=== PATIENT | female | born 1995 | race Caucasian/White ===

== ENCOUNTER → 2019-12-08 13:36 | Outpatient (CLI) | payer OTHER, SELFPAY ==
[2019-12-09 08:03] LABS: Strep Grp B PCR NEG for Grp B Strep
== END ==
PROVIDERS: Visit Provider Obstetrics & Gynecology
DX: Z34.03 Encounter for supervision of normal first pregnancy, third trimester (principal); Z3A.35 35 weeks gestation of pregnancy
CPT/HCPCS: 87653

== ENCOUNTER 2019-12-08 15:34 | Outpatient (CLI) | payer OTHER, SELFPAY | END 2019-12-08 16:07 | disposition home or self-care (01) | LOC: LABOR 15:38 → OB 12-09 12:40 | PROVIDERS: Referring Provider Obstetrics & Gynecology; Visit Provider Obstetrics & Gynecology | DX: O36.5930 Maternal care for other known or suspected poor fetal growth, third trimester, not applicable or unspecified (principal); O41.03X0 Oligohydramnios, third trimester, not applicable or unspecified; Z3A.35 35 weeks gestation of pregnancy | CPT/HCPCS: 59025; 87653; G0378; G0379 ==

== ENCOUNTER → 2019-12-12 09:09 | Outpatient (CLI) | payer OTHER, SELFPAY ==
--- NOTE | 2019-12-12 09:11 | DI.US.S_ITS ---
PROCEDURE: US OB LIMITED INDICATIONS: EFW; BPP OUTSIDE/PRIOR DATING DATA: Last menstrual period (LMP): Unknown. LMP-based estimated date of delivery (DIANA): Unknown. First dating scan (date and location): 12/12/2019. Estimated date of delivery (DIANA) from first dating scan: 01/14/2020. TECHNIQUE: Real-time scanning was performed of the fetus, with image documentation and biometric measurements. Biophysical profile was also obtained. COMPARISON: [facility], , OB <= 14 WEEKS FETUS, 12/08/2019, 13:51. FINDINGS: General: A single living intrauterine gestation is present. Presentation: Vertex. Placenta: Placental position is anterior, without previa. Amniotic fluid index: 6.9 cm, normal range is 5-24 cm. heart rate: 133 beats per minute. Maternal cervical canal: Not well-seen. biometrics: Biparietal diameter: 8.8 cm. 35 weeks 4 days. Head circumference: 32.0 cm. 36 weeks 0 days. Abdominal circumference: 30.7 cm. 34 weeks 4 days. Femur length: 6.8 cm. 35 weeks 1 day. Estimated gestational age from initial scan: not applicable. Composite gestational age from present scan: 35 weeks 2 days. Estimated weight: 2563 g. Measurement variability for biometric dating: +/- 7 days from 14 weeks to 15 weeks 6 days gestation, +/- 10 days from 16 weeks to 21 weeks 6 days gestation, +/- 2 weeks from 22 weeks to 27 weeks 6 days gestation, +/- 3 weeks for 28 weeks gestation or later. weight reference: 4500 g or EFW >90/95% is considered macrosomia or large for gestational age. EFW <10% is small for gestational age. EFW 5% or less is considered intra-uterine growth restriction. Biophysical profile: 03/27. Tone: 2 points. Movement: 2 points. Respiration: 2 points. Largest pocket of fluid: 2 points. IMPRESSION: 1. [place] living intrauterine at 35 weeks 2/7 days based on prior ultrasound. Estimated weight 2563 grams. Vertex position. 2. Normal placenta and amniotic fluid. 3. Normal biophysical profile. Score 8 out of 8. Dictated by: Humberto Clinton M.D. on 12/12/2019 at 9:49 Approved by: Humberto Clinton M.D. on 12/12/2019 at 9:54
== END ==
PROVIDERS: Referring Provider Obstetrics & Gynecology; Visit Provider Obstetrics & Gynecology
DX: O28.8 Other abnormal findings on antenatal screening of mother (principal); O36.5930 Maternal care for other known or suspected poor fetal growth, third trimester, not applicable or unspecified; Z3A.35 35 weeks gestation of pregnancy
CPT/HCPCS: 76815; 76819

== ENCOUNTER 2019-12-19 10:51 | Inpatient (IN) | payer OTHER, SELFPAY ==
[2019-12-19 13:44] LABS: Add Manual Diff / Slide Review NO; Basophils Absolute Auto 0 /uL (0-100); Basophils Percent Auto 0.2 % (0-2); Eosinophils Absolute Auto 0 /uL (0-450); Hematocrit 34.5 % (36-46); Hemoglobin 11.8 g/dL (12.0-16.0); Lymphocytes Absolute Auto 2100 /uL (1100-4500); Lymphocytes Percent Auto 13.9 % (25-40); Mean Corpuscular HGB Conc 34.1 % (30-36); Mean Corpuscular Hemoglobin 32.1 PG (26-34); Mean Corpuscular Volume 94.1 fL (80-100); Monocytes Absolute Auto 800 /uL (0-900); Monocytes Percent Auto 5.4 % (3-14); Neutrophils Absolute Auto 12200 /uL (1500-7000); Neutrophils Percent Auto 80.5 % (50-75); Platelet Count 270 X10^3/uL (150-400); Red Blood Cell Count 3.67 X10^6/uL (4.0-5.2); Red Cell Distribution Width 13.1 % (11.6-14.8); White Blood Cell Count 15.2 X10^3/uL (4.5-11.0)
[2019-12-19] MEDS: miSOPROStoL 25 MCG TABLET 50 MCG PO ×2 (16:04→21:23)
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
--- NOTE | 2019-12-19 20:09 | PM.OBPNLAB ---
Date/Time Date Patient Seen: 12/19/19 Time Patient Seen: 20:10 Pain Control Pain control: tolerating well Comments: not feeling any contractions Pelvic Exam Comments: exam not repeated Contractions Date/Time contractions began: q 2-5, mostly q 5 minutes. pt not feeling contractions Contractions on admission: irregular Monitor mode: External Contraction frequency (min): 5 Status status: Category l Heart Rate Baseline: 135 Monitor Accelerations: Present Monitor Decelerations: Absent Monitor Variability: Moderate Assessment and Plan Assessment: induction ongoing Comments: will check in 1 hour and see if contractions remain spaced enough for repeat Cytotec at that time. Currently 4 hours from her first dose.
[2019-12-19] MEDS: diphenhydrAMINE 25 MG TABLET PO (21:23)
[2019-12-20] MEDS: OXYTOCIN PREMIX 30 UNIT/500 ML PLAST..BAG IV (05:07)
[2019-12-20] MEDS: LACTATED RINGERS 1,000 ML 100 ML IV (08:28)
[2019-12-20] MEDS: ONDANSETRON 4 MG/2 ML INJ IV ×2 (08:59→17:44)
[2019-12-20] MEDS: fentaNYL 100 MCG/2 ML INJ 50 MCG IV (09:43)
--- NOTE | 2019-12-20 10:02 | PM.OBPNLAB ---
Date/Time Date Patient Seen: 12/20/19 Time Patient Seen: 10:05 Pain Control Pain control: tolerating well Comments: Patient had spontaneous rupture membranes at 10:30 p.m. last p.m., about 1 hour after her 2nd dose of Cytotec. Her contractions were every 4-5 minutes. At 3:00 a.m. had her cervix re-checked and there was only some mild effacement, cervix fingertip/50%. Patient was not feeling the contractions. Instructions given to start Pitocin induction of labor at 5:00 a.m. if no labor. Pitocin started. At 7:30 a.m. Pitocin at 3 milliunits, patient only feeling some cramping. Pitocin further increased at that time and she has now become more uncomfortable. Desire something for pain relief, desires IV versus epidural depending on her exam. Pelvic Exam Dilation (cm): 1 Effacement (%): 75 station: -2 Contractions Monitor mode: External Pitocin rate (mU/min): 7 Contraction frequency (min): 4 Contraction pattern: Irregular (2-4 minutes) Status status: Category l Monitor Accelerations: Present Monitor Decelerations: Absent Monitor Variability: Moderate Assessment and Plan Assessment: induction ongoing Plan: continuous present management Comments: Thirty-seven weeks, induction for oligohydramnios, SROM, early labor. Category 1 EFM Continue Pitocin. Patient desires try IV fentanyl for discomfort, will desire an epidural when she becomes more uncomfortable.
--- NOTE | 2019-12-20 14:39 | PM.OBPNLAB ---
Date/Time Date Patient Seen: 12/20/19 Time Patient Seen: 14:20 Pain Control Pain control: tolerating well and narcotic analgesia (Received relief with fentanyl several hours ago. Contractions still now tolerable, does not desire any thing else for discomfort) Pelvic Exam Dilation (cm): 0 Effacement (%): 70 station: -2 Contractions Monitor mode: External Contraction frequency (min): 4 Contraction pattern: Irregular (2-4 minutes) Contraction intensity: Mild Status status: Category l Heart Rate Baseline: 130 Monitor Accelerations: Present Monitor Decelerations: Absent Monitor Variability: Moderate Assessment and Plan Assessment: induction ongoing Plan: continuous present management (Continue Pitocin. Increase from 12 to14 milliunits/minute)
--- NOTE | 2019-12-20 19:23 | PM.OBPNLAB ---
Date/Time Date Patient Seen: 12/20/19 Time Patient Seen: 19:00 Pain Control Pain control: tolerating well Comments: She became more uncomfortable with only some contractions about an hour ago with some nausea. Nausea relief with Zofran. Contraction is now more mild again inpatient sleeping intermittently. Pelvic Exam Dilation (cm): 0 Effacement (%): 75 station: -2 Comments: Cervix somewhat softer, but no significant change Contractions Monitor mode: External Pitocin rate (mU/min): 18 Contraction frequency (min): 4 Contraction duration (min): 1 Contraction pattern: Irregular (2-4 minutes) Contraction intensity: Mild Status status: Category l Heart Rate Baseline: 130 Monitor Accelerations: Present Monitor Decelerations: Absent Monitor Variability: Moderate Assessment and Plan Assessment: induction ongoing Plan: other (Pitocin turned off. Will let her eat after the contractions space some. Will have Cervidil placed for overnight after contractions space and after a break.)
[2019-12-20] MEDS: ACETAMINOPHEN 325 MG TABLET 650 MG PO (21:20)
[2019-12-20] MEDS: ZOLPIDEM 5 MG TABLET PO (21:41)
[2019-12-20] MEDS: DINOPROSTONE VAG (CERVIDIL) 10 MG VAG (21:42)
[2019-12-21] MEDS: ONDANSETRON 4 MG/2 ML INJ IV (06:48)
[2019-12-21] MEDS: LACTATED RINGERS 1,000 ML 100 ML IV ×2 (08:03→23:16)
[2019-12-21] MEDS: OXYTOCIN PREMIX 30 UNIT/500 ML PLAST..BAG IV (08:17)
--- NOTE | 2019-12-21 11:07 | PM.OBPNLAB ---
Date/Time Date Patient Seen: 12/21/19 Time Patient Seen: 11:00 Pain Control Pain control: epidural Comments: Pt started to become more uncomfortable around 630 around time of Cervidil being pulled. Desired epidural for anesthesia prior to any additional vaginal exams. Declined fentanyl. Anesthesia called for epidural. Pitocin started for induction. Pelvic Exam Dilation (cm): 1 Effacement (%): 75 station: -2 Amniotic membrane status: Ruptured (clear at 2230 5/1) Contractions Contractions on admission: regular Monitor mode: External Pitocin rate (mU/min): 7 Contraction frequency (min): 3 Contraction pattern: Irregular (2-4 minutes) Contraction intensity: Mild Status status: Category l Monitor Accelerations: Present Monitor Decelerations: Absent Monitor Variability: Moderate Assessment and Plan Assessment: induction ongoing Comments: Pitocin started this morning again for induction. Will recheck cervix in a few hours, earlier as needed.
--- NOTE | 2019-12-21 12:47 | PM.OBPNLAB ---
Date/Time Date Patient Seen: 12/21/19 Time Patient Seen: 11:50 Pain Control Pain control: epidural Pelvic Exam Dilation (cm): 1 Effacement (%): 75 station: -2 Amniotic membrane status: Ruptured (clear at 2230 12/18) Comments: exam not re-checked Contractions Monitor mode: External Contraction frequency (min): 3 Contraction pattern: Irregular (2-4 minutes) Contraction intensity: Mild Status status: Category l Heart Rate Baseline: 130 Monitor Accelerations: Present Monitor Decelerations: Absent Monitor Variability: Moderate Comments: FHR with episode of 4 recurrent moderate to severe variable deceleration with late component about 2 hour after her epidural. Decels occurred after position change from left to right side, was due for position change. BP mildly low for her, 94-99/50 to 60s. With placing her further on her right side and IV fluid bolus, Pitocin turned off (had been at 8 milliunits/minute), the decelerations quickly resolved. Decelerations have been resolved for the past hour. Pitocin restarted about 10 minutes ago at 5 milliunits per minute. Assessment and Plan Assessment: induction ongoing Comments: Brief category 2 EFM, may have been due to low BP after epidural versus cord compression with stronger contractions. EFM now category 1. Pitocin restarted. Will gradually increase and observe EFM.
[2019-12-21] MEDS: LACTATED RINGERS 1,000 ML 1000 ML IV (13:41)
--- NOTE | 2019-12-21 16:46 | PM.OBPNLAB ---
Date/Time Date Patient Seen: 12/21/19 Time Patient Seen: 16:00 Pelvic Exam Dilation (cm): 1 Effacement (%): 80 station: -2 Amniotic membrane status: Ruptured (clear at 2230 /) Comments: cervix 1.5 cm, 80%, -2. mid position now rather than posterior Contractions Contractions on admission: irregular Monitor mode: External Pitocin rate (mU/min): 10 Contraction frequency (min): 3 Contraction pattern: Irregular (2-4 minutes) Contraction intensity: Mild Status status: Category l Heart Rate Baseline: 130 Monitor Accelerations: Present Monitor Decelerations: Absent Monitor Variability: Moderate Assessment and Plan Assessment: induction ongoing Plan: continuous present management Comments: Finally having some subtle cervical change c/w early labor. Continue Pitocin at 10 milliunits. Will recheck cervix in 2-3 hours
[2019-12-21] MEDS: FENT 2MCG/ML BUPIV 0.125% EPI 200 MCG/100 ML PLAST..BAG 4 MCG EPIDURAL (18:06)
--- NOTE | 2019-12-21 19:33 | PM.OBPNLAB ---
Date/Time Date Patient Seen: 12/21/19 Time Patient Seen: 19:33 Pain Control Pain control: epidural Pelvic Exam Dilation (cm): 2 Effacement (%): 80 station: -2 Amniotic membrane status: Ruptured (clear at 2230 12/18) Comments: cervix almost anterior position now. +moderate gush of clear fluid noted--none had been seen since her small amount of leakage on 12/18. Contractions Monitor mode: External Pitocin rate (mU/min): 10 Contraction frequency (min): 3 Contraction pattern: Irregular (2-4 minutes) Contraction intensity: Mild Status status: Category l Heart Rate Baseline: 135 Monitor Accelerations: Present Monitor Decelerations: Absent Monitor Variability: Moderate Assessment and Plan Assessment: induction ongoing Comments: continue Pitocin, increased from 10 to 11.
--- NOTE | 2019-12-22 00:08 | PM.OBPNLAB ---
Date/Time Date Patient Seen: 12/21/19 Time Patient Seen: 23:30 Pain Control Pain control: epidural Pelvic Exam Dilation (cm): 4 Effacement (%): 80 station: -2 Amniotic membrane status: Ruptured (clear at 2230 5/1) Contractions Monitor mode: External Pitocin rate (mU/min): 18 Contraction frequency (min): 2 Contraction pattern: Regular (2-4 minutes) Contraction intensity: Moderate Status status: Category l Monitor Accelerations: Present Monitor Decelerations: Absent Monitor Variability: Moderate Assessment and Plan Assessment: induction ongoing and other (early labor) Plan: continuous present management Comments: Will have RN re-check cerix in several hours. Continue Pitocin at current rate.
--- NOTE | 2019-12-22 04:02 | PM.OBPNLAB ---
Date/Time Date Patient Seen: 12/22/19 Time Patient Seen: 03:00 Pain Control Pain control: epidural Comments: Feeling vaginal pressure with contractions Pelvic Exam Dilation (cm): 7 Effacement (%): 80 station: -2 Amniotic membrane status: Ruptured (clear at 2230 5/1) Contractions Monitor mode: External Pitocin rate (mU/min): 13 Contraction frequency (min): 3 Contraction pattern: Regular (2-4 minutes) Contraction intensity: Moderate Status status: Category l Monitor Accelerations: Present Monitor Decelerations: Absent Monitor Variability: Moderate Assessment and Plan Assessment: active labor Plan: continuous present management Comments: temp 99.0 F, repeat 1 hour later at 0400 temp 97.7.
[2019-12-22] MEDS: FENT 2MCG/ML BUPIV 0.125% EPI 200 MCG/100 ML PLAST..BAG 8 MCG EPIDURAL (09:53)
[2019-12-22 13:29] LABS: Hematocrit 25.4 % (36-46); Hemoglobin 8.7 g/dL (12.0-16.0); Mean Corpuscular HGB Conc 34.1 % (30-36); Mean Corpuscular Volume 93.9 fL (80-100); Platelet Count 228 X10^3/uL (150-400); Red Blood Cell Count 2.71 X10^6/uL (4.0-5.2); Red Cell Distribution Width 12.9 % (11.6-14.8); White Blood Cell Count 24.5 X10^3/uL (4.5-11.0)
[2019-12-22] MEDS: IBUPROFEN 600 MG TABLET PO (14:51)
[2019-12-22] MEDS: DERMOPLAST SPRAY 20% 60 ML 1 SPRAY TOP (14:51)
[2019-12-22] MEDS: LACTATED RINGERS 1,000 ML 100 ML IV (15:19)
--- NOTE | 2019-12-22 18:47 | PM.OBPRVD ---
 Events: Labor Induction, Prolonged Rupture of Membrane (durign induction) and Oligohydramnios Labor & Delivery Delivery date: 12/22/19 Intrapartal events: Prolonged 2nd Stage > 2.5 hours Cervical ripening method: per misoprostal protocol (night #2 cervidil) Induction method: per pitocin protocol Delivery monitor: external FHT and external uterine Route of delivery: vacuum extraction Indication for instrumentation: maternal exhaustion (Due prolonged 2nd stage) L&D Laceration Description: Perineal - 3rd Degree Delivery repair: vicryl and chromic Estimated blood loss (mL): 500 Anesthesia type: Local (for repair) Complications: none Narrative: She underwent 2 day induction of labor with cervical ripening tonight. She progressed slowly in early labor, then had a normal active phase. She progressed to completely dilated. She began pushing. Vertex initially felt to be 2+ station, later only 1+. Initially L OP, after 1 hour infant noted to have spontaneously rotated to LOT, then later to ABAD, for approximately her last 2 hours of pushing. She pushed approximately 4 hours. She was making slow gradual progress, and vertex descended during the pushing, but then would go back up to 1+ station initially. She finally brought the baby down to 2+ station, then 3+ station with molding, and was becoming exhausted with less effective pushing at this time. I offered vacuum assistance and she desired proceeding with vacuum assistance. Her Oliveros catheter had been removed approximately 20 minutes prior to vacuum. Repeat exam noted vertex to continue to be left occiput anterior position. Flat kiwi vacuum was applied between contractions. With her next contraction, the vacuum application was checked, then was pumped up to the normal pressure, and with the patient pushing, vacuum assistance was given with additional descent. I let her push herself over the next contraction. Between contractions the vacuum was again placed and vacuum assistance given with the next contraction and the vertex was brought to . The vacuum was removed. The patient continue to push and the head was delivered while the perineum was supported. The perineum was noted to give, tear with delivery of the head. Nuchal cord x1 was reduced. Anterior followed by posterior shoulders were then delivered without difficulty with the patient pushing, followed by the remainder of the body. A baby boy was delivered at 11:12 a.m. The baby cried spontaneously, appeared vigorous and was placed on the maternal abdomen. After 1 minute, cord was clamped and then cut by the father of the baby. Placenta delivered spontaneously approximately 18 minutes later. She had some 2 spurts of moderate bleeding prior to the delivery of the placenta. On exam placenta was not yet detached. Uterine massage then stopped the bleeding. With the 3rd episode of having some increased bleeding, on repeat exam the placenta was now detached and with some gentle traction and then the patient pushing, the placenta delivered. Uterine massage was given and her bleeding remained normal, light after delivery of the placenta. She was given routine Pitocin IV. On inspection she had a third-degree perineal laceration which was repaired in the usual fashion with 3 -0 chromic and 2 -0 Vicryl. She was breast-feeding during the perineal repair. She felt well and seemed to tolerate the procedure well. Afterward however with sitting her up she felt lightheaded, and her BP was 70/50. Her pad only showed minimal blood and her fundus was at U -2, unchanged. She was laid back down to supine position and LR 1000 mL fluid bolus given. Fingerstick glucose was 81. Her BP gradually increased to SBP 90s and she felt better. She was kept semi recumbent and gradually felt better over the next few hours. Drop in BP appears to have been due to the blood loss while awaiting the placenta. Postprocedural Hgb/Hct was 8.7/25, down from admission H/H 11.8/34 [place] Baby 1: gender: Male Presentation: vertex position: Right Occiput Anterior (left occiput anterior) Placenta delivery description: Spontaneous and Normal Configuration cord vessel description: 3 Vessels score (1 min): 9 score (5 min): 9 Plan for aftercare: Gradual progression to semi recumbent position from lying, and gradual increase to sitting, after IV hydration. Initial ambulation with assist. Repeat H/H in am
[2019-12-22] MEDS: ACETAMINOPHEN 325 MG TABLET 650 MG PO (19:40)
[2019-12-23] MEDS: ACETAMINOPHEN 325 MG TABLET 650 MG PO (04:31)
[2019-12-23 07:01] LABS: Add Manual Diff / Slide Review NO; Basophils Absolute Auto 0 /uL (0-100); Basophils Percent Auto 0.1 % (0-2); Eosinophils Absolute Auto 0 /uL (0-450); Eosinophils Percent Auto 0.1 % (2-4); Hematocrit 23.4 % (36-46); Hemoglobin 8.1 g/dL (12.0-16.0); Lymphocytes Absolute Auto 1700 /uL (1100-4500); Lymphocytes Percent Auto 10.1 % (25-40); Mean Corpuscular HGB Conc 34.8 % (30-36); Mean Corpuscular Hemoglobin 32.6 PG (26-34); Mean Corpuscular Volume 93.7 fL (80-100); Monocytes Absolute Auto 900 /uL (0-900); Monocytes Percent Auto 5.4 % (3-14); Neutrophils Absolute Auto 13900 /uL (1500-7000); Neutrophils Percent Auto 84.3 % (50-75); Platelet Count 220 X10^3/uL (150-400); Red Blood Cell Count 2.49 X10^6/uL (4.0-5.2); Red Cell Distribution Width 13.3 % (11.6-14.8); White Blood Cell Count 16.5 X10^3/uL (4.5-11.0)
[2019-12-23] MEDS: IBUPROFEN 600 MG TABLET PO (08:20)
[2019-12-23] MEDS: DOCUSATE 100 MG CAPSULE PO (08:21)
[2019-12-23 12:42] VITALS: BP 96/62; PULSE 86; RESP 16; TEMP 37.1
--- NOTE | 2019-12-23 12:58 | P.DS_ITS ---
History of Present Illness History of Present Illness Date Patient Seen: 12/23/19 Time Patient Seen: 12:30 Chief complaint: oligohydramnios Narrative: Jill Kamara is a 24 year old female with DIANA 01/08/2020 by LMP and consistent with a 10 week ultrasound, who was admitted for induction of labor due to oligohydramnios. She was followed for about 10 days with borderline oligohydramnios. On day of admission MIKALA had dropped, measured between 4.18- 4.94. Discharge Providers Provider Date of admission: 12/19/19 10:51 Discharge Date: 12/23/19 Consults: 12/19/19 13:57 Consult to Anesthesiology Urgent Comment: Consulting Provider: Anesthesiologist Reason for consultation: labor pain Has provider been notified: No 12/23/19 12:38 Consult to Manager Fixed Income Routine Comment: Discharge provider: Edna Jones MD Summary Hospital Course Discharge Diagnosis: Thirty-seven week , delivered for oligohydramnios Prolonged 2nd stage of labor Status post vacuum assisted vaginal delivery Hospital Course: Jill received misoprostol for cervical ripening and had spontaneous rupture membranes after her 1st dose. She subsequently received Pitocin induction of labor day 1. Without active labor. She received a 2nd evening of cervical ripening with Cervidil, then day 2 Pitocin induction. She progressed in to early then active labor with the Pitocin. She had a normal active phase of labor. She had a prolonged 2nd stage of labor with maternal exhaustion and underwent vacuum assisted vaginal delivery. She delivered a healthy baby boy weighing 5 lb 8 oz with Apgars of 9 and 9. She did have some increased vaginal bleeding while awaiting the placenta, but normal bleeding after placental delivery. Due to the prior moderate blood loss she did feel lightheaded soon after delivery with sitting upright, with a significant decreased blood pressure. She only had light bleeding at this time. Blood pressure improved with IV fluids and she gradually felt better. Hemoglobin had dropped to 8.7 from 11.8 on admission. On day 1 hemoglobin was 8.1. She has continued to feel better. She feels well today. She is having a normal course. Lochia has remained normal. She she only has mild perineal discomfort, relieved with ibuprofen and Tylenol. The baby is breast- feeding well and is doing well. The baby is ready for discharge home and patient desires discharge as well. Status at Discharge Cognitive/behavioral status at discharge: oriented Functional status at discharge: independent ambulation Overall status at discharge: patient is progressing back to baseline Time Spent with Patient Time spent: Less than 30 minutes Exam Vital Signs (past 8 hours): - 12/23/19 12:42 Temperature 98.8 F Pulse Rate 86 Respiratory Rate 16 Blood Pressure 96/62 Narrative Exam Narrative: General: Well-appearing female Abdomen: Soft, nontender, nondistended. Fundus U -2, firm, nontender Extremities: Trace pedal edema Objective Labs Result Diagrams: 12/23/19 06:32 Labs: Laboratory Results - last 24 hr 12/22/19 12/23/19 13:14 06:32 WBC 24.5 H 16.5 H RBC 2.71 L 2.49 L Hgb 8.7 L 8.1 L Hct 25.4 L 23.4 L MCV 93.9 93.7 MCH 32.0 32.6 MCHC 34.1 34.8 RDW 12.9 13.3 Plt Count 228 220 Neut % (Auto) 84.3 H Lymph % (Auto) 10.1 L Crawford % (Auto) 5.4 Eos % (Auto) 0.1 L Baso % (Auto) 0.1 Neut # (Auto) 87389 H Lymph # (Auto) 1700 Crawford # (Auto) 900 Eos # (Auto) 0 Baso # (Auto) 0 Discharge Plan Discharge Plan Patient Disposition: Home Discharge comment: Follow-up appointment in 6 weeks with me. Discharge orders & Medications Prescriptions: New ibuprofen 600 mg Tablet 600 mg PO Q6HR PRN (Reason: Pain, Mild (1-3)) Qty: 90 RF: 1 acetaminophen 325 mg Tablet 650 mg PO Q6HR PRN (Reason: Fever/Mild Pain (1-3)) Qty: 0 RF: 0 docusate sodium [DOK] 100 mg Capsule 100 mg PO DAILY Qty: 0 RF: 0 Ldh-L-Ohhfkr Cream 1 applic topical PRN PRN (Reason: Tenderness) Qty: 0 RF: 0 ferrous sulfate 325 mg (65 mg iron) tablet 325 mg PO DAILY Qty: 90 RF: 1 ferrous sulfate 325 mg (65 mg iron) tablet 325 mg PO DAILY Qty: 30 RF: 1 Continued prenat.vits,rhett,[id number]-cqvx-hihio Tablet 1 tab PO DAILY RF: 0 Discontinued Unisom (doxylamine) 25 mg tablet 25 mg PO BEDTIME MDD 25mg PRN (Reason: Nausea) RF: 0 pyridoxine (vitamin B6) 25 mg tablet 25 mg PO DAILY RF: 0 Follow up/Referrals: Edna Jones MD [Physician] - (Appointment with on Sunday,January at 10:00 am) Discharge Health Status Multidrug resistant organism: No MDRO Diet/Activity/Treatments Diet: Regular Activity: No heavy lifting and no strenuous exercise for 6 weeks. Nothing in the vagina for 6 weeks, including no tampons and no intercourse. Cold/Heat Therapy: May use a cold compress to vaginal incisional area. Skin/Wound/Dressing Care Report to your healthcare provider any signs of infection, such as:: chills, fever and increased pain Visit Report/Discharge Packet Instructions: DI for Labor and Delivery, Vaginal Visit Report Forms: Patient Portal/API, Stroke Signs & Symptoms
== END 2019-12-23 14:30 | disposition home or self-care (01) | DRG 768 ==
PROVIDERS: Admitting Provider Obstetrics & Gynecology; Referring Provider Obstetrics & Gynecology; Visit Provider Obstetrics & Gynecology
DX: O41.03X0 Oligohydramnios, third trimester, not applicable or unspecified (principal); Z37.0 Single live birth; O60.14X0 Preterm labor third trimester with preterm delivery third trimester, not applicable or unspecified; O70.20 Third degree perineal laceration during delivery, unspecified; O63.1 Prolonged second stage (of labor); Z3A.37 37 weeks gestation of pregnancy; O75.81 Maternal exhaustion complicating labor and delivery
CPT/HCPCS: 01967; 36415; 59050; 59200; 59410; 85025; 85027; 86850; 86900; 86901; 87635; G0379; J2405; J2590; J3010

== ENCOUNTER 2020-01-16 16:13 | Emergency (ER) | payer OTHER, SELFPAY ==
[2020-01-16] VITALS (7 sets, daily range): BP systolic 100–132; BP diastolic 64–68; PULSE 63–93; RESP 14–17; TEMP 36.9; O2SAT 98–100
[2020-01-16 17:15] LABS: Add Manual Diff / Slide Review NO; Basophils Absolute Auto 0 /uL (0-100); Basophils Percent Auto 0.7 % (0-2); Eosinophils Absolute Auto 0 /uL (0-450); Eosinophils Percent Auto 0.6 % (2-4); Hematocrit 28.2 % (36-46); Hemoglobin 9.5 g/dL (12.0-16.0); Lymphocytes Absolute Auto 1700 /uL (1100-4500); Lymphocytes Percent Auto 27.5 % (25-40); Mean Corpuscular HGB Conc 33.7 % (30-36); Mean Corpuscular Hemoglobin 29.4 PG (26-34); Mean Corpuscular Volume 87.1 fL (80-100); Monocytes Absolute Auto 300 /uL (0-900); Monocytes Percent Auto 5.4 % (3-14); Neutrophils Absolute Auto 4200 /uL (1500-7000); Neutrophils Percent Auto 65.8 % (50-75); Platelet Count 422 X10^3/uL (150-400); Red Blood Cell Count 3.24 X10^6/uL (4.0-5.2); Red Cell Distribution Width 15.7 % (11.6-14.8); White Blood Cell Count 6.4 X10^3/uL (4.5-11.0)
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
[2020-01-16 17:25] LABS: Alanine Aminotransferase 13 IU/L (<35); Albumin 4.4 g/dL (3.5-5.0); Albumin Globulin Ratio 1.5 (1.0-2.8); Alkaline Phosphatase 106 U/L (38-126); Aspartate Aminotransferase 30 IU/L (14-36); BUN Creatinine Ratio 11.4 (6-22); Bilirubin Total 0.3 mg/dL (0.2-1.3); Blood Urea Nitrogen 8 mg/dL (7-17); Calcium 9.7 mg/dL (8.4-10.2); Carbon Dioxide 28 mmol/L (22-32); Chloride 105 mmol/L (98-107); Creatine Kinase 29 U/L (30-135); Estimated Glomerular Filt Rate > 60.0 mL/min (>60); Glucose 75 mg/dL (70-100); HEMOLYSIS < 15 (0-50); Potassium 3.8 mmol/L (3.4-5.1); Sodium 140 mmol/L (137-145); Total Protein 7.4 g/dL (6.3-8.2)
--- NOTE | 2020-01-16 17:33 | DI.CT.S_ITS ---
PROCEDURE: CT HEAD/BRAIN WO CON INDICATIONS: syncopal/ black out spells that sound like seizures TECHNIQUE: Noncontrast 4.5 mm thick angled axial sections acquired from the foramen magnum to the vertex, with coronal and sagittal reformats. For radiation dose reduction, the following was used: automated exposure control, adjustment of mA and/or kV according to patient size. COMPARISON: None. FINDINGS: Image quality: Excellent. CSF spaces: Basal cisterns are patent. No extra-axial fluid collections. Ventricles are normal in size and shape. Brain: No midline shift. No intracranial masses or hemorrhage. [place]-white matter interface is normal. Skull and face: Calvarium and visualized facial bones are intact, without suspicious lesions. Sinuses: Visualized sinuses and mastoids are clear. IMPRESSION: Negative head CT. No evidence acute stroke, hemorrhage, or mass. Dictated by: Andreas Ellington M.D. on 01/16/2020 at 16:56 Approved by: Andreas Ellington M.D. on 01/16/2020 at 16:57
[2020-01-16 17:40] LABS: Troponin I < 0.012 ng/mL (0.01-0.034)
[2020-01-16] MEDS: SODIUM CHLORIDE 0.9% 1,000 ML 1000 ML IV (18:09)
[2020-01-16 18:29] LABS: Thyroid Stimulating Hormone 0.36 uIU/mL (0.47-4.68)
[2020-01-16 19:14] LABS: UR Morphine/Opiate cutoff 300 Negative (Negative); Ur Creatinine Normal (Normal); Ur Specific Gravity Normal (Normal); Urine Amphetamines Negative (Negative); Urine Barbiturates Negative (Negative); Urine Benzodiazepines Negative (Negative); Urine Cocaine Negative (Negative); Urine MDMA Negative (Negative); Urine Methadone Negative (Negative); Urine Methamphetamines Negative (Negative); Urine Oxycodone Negative (Negative); Urine Phencyclidine Negative (Negative); Urine Tetrahydrocannabinol Negative (Negative); Urine Tricyclic Antidepressant Negative (Negative); Urine pH Normal (Normal)
[2020-01-16 19:15] LABS: Bacteria Urine Few (2-10); Culture Indicated Urine Specimen Cultured; RBC Urine 0-1/HPF (0-5/HPF); Renal Epithelial Cells Urine 0-1/HPF (0-1/HPF); Squamous Epithelial Cell Urine 1-5 /HPF (0-5/HPF); Transitional Epi Cells Urine 0-1/HPF (0-5/HPF); WBC Urine 5-10/HPF (0-5/HPF)
== END 2020-01-16 21:29 | disposition home or self-care (01) ==
PROVIDERS: Emergency Provider Emergency Medicine
DX: R55 Syncope and collapse (principal)
CPT/HCPCS: 36415; 70450; 80053; 80305; 81003; 81015; 82550; 84443; 84484; 85025; 87086; 93005; 93010; 96360; 99284

== ENCOUNTER 2020-07-21 22:33 | Emergency (ER) | payer OTHER, SELFPAY ==
[2020-07-21 22:38] VITALS: PULSE 71; O2SAT 100
[2020-07-21 22:45] VITALS: BP 135/88; PULSE 69; RESP 12; TEMP 36.6; O2SAT 99; BMI 27.4
[2020-07-21] MEDS: LIDOCAINE 1% (PF) 2 ML INJ (23:34)
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
[2020-07-21] MEDS: CYCLOBENZAPRINE 10 MG TABLET PO (23:49)
[2020-07-21 23:53] VITALS: PULSE 66; O2SAT 100
[2020-07-21 23:54] VITALS: BP 131/82; PULSE 66; O2SAT 100
== END 2020-07-22 | disposition home or self-care (01) ==
PROVIDERS: Emergency Provider Emergency Medicine
DX: S16.1XXA Strain of muscle, fascia and tendon at neck level, initial encounter (principal)
CPT/HCPCS: 99281; 99283

== ENCOUNTER 2022-04-28 22:09 | Emergency (ER) | payer OTHER, SELFPAY ==
[2022-04-28 22:24] VITALS: BP 125/75; PULSE 70; RESP 16; TEMP 36.2; O2SAT 100; BMI 28.3
[2022-04-28 23:05] VITALS: BP 132/80; PULSE 72; RESP 18; TEMP 36.7; O2SAT 100
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
[2022-04-28] MEDS: FLUORESCEIN 1 MG STRIP EYE-BOTH (23:26)
[2022-04-28] MEDS: PROPARACAINE 0.5% OPHTH SOL 1 DROPS EYE-RIGHT (23:26)
[2022-04-28] MEDS: ERYTHROMYCIN OPHTH 1 GM OINT 1 APPLIC EYE-LEFT (23:26)
== END 2022-04-28 23:40 | disposition home or self-care (01) ==
PROVIDERS: Emergency Provider Emergency Medicine
DX: S05.02XA Injury of conjunctiva and corneal abrasion without foreign body, left eye, initial encounter (principal); W26.2XXA Contact with edge of stiff paper, initial encounter
CPT/HCPCS: 99282

== ENCOUNTER 2022-11-24 16:43 | Emergency (ER) | payer OTHER, SELFPAY ==
[2022-11-24 17:07] VITALS: BP 117/67; PULSE 117; RESP 14; TEMP 36.6; O2SAT 100; BMI 28.1
[2022-11-24 17:47] LABS: Add Manual Diff / Slide Review NO; Alanine Aminotransferase 14 IU/L (<35); Albumin Globulin Ratio 1.4 (1.0-2.8); Alkaline Phosphatase 87 U/L (38-126); Aspartate Aminotransferase 28 IU/L (14-36); BUN Creatinine Ratio 23.3 (6-22); Basophils Absolute Auto 0 /uL (0-100); Basophils Percent Auto 0.1 % (0-2); Blood Urea Nitrogen 14 mg/dL (7-17); Calcium 9.4 mg/dL (8.4-10.2); Carbon Dioxide 22 mmol/L (22-32); Chloride 103 mmol/L (98-107); Eosinophils Absolute Auto 0 /uL (0-450); Estimated Glomerular Filt Rate > 60 mL/min (>60); Globulin 3.6 g/dL (1.7-4.1); Glucose 99 mg/dL (70-100); HEMOLYSIS 18 (0-50); Hematocrit 43.6 % (36-46); Lipase 62 U/L (23-300); Lymphocytes Absolute Auto 400 /uL (1100-4500); Lymphocytes Percent Auto 2.9 % (25-40); Mean Corpuscular HGB Conc 34.5 % (30-36); Mean Corpuscular Hemoglobin 30.3 PG (26-34); Mean Corpuscular Volume 87.8 fL (80-100); Monocytes Absolute Auto 400 /uL (0-900); Monocytes Percent Auto 2.9 % (3-14); Neutrophils Absolute Auto 14300 /uL (1500-7000); Neutrophils Percent Auto 94.1 % (50-75); Platelet Count 289 X10^3/uL (150-400); Potassium 4.4 mmol/L (3.4-5.1); Red Blood Cell Count 4.97 X10^6/uL (4.0-5.2); Red Cell Distribution Width 13.3 % (11.6-14.8); Sodium 137 mmol/L (137-145); Total Protein 8.6 g/dL (6.3-8.2); White Blood Cell Count 15.2 X10^3/uL (4.5-11.0)
[2022-11-24] MEDS: ONDANSETRON 4 MG/2 ML INJ IV (19:20)
[2022-11-24] MEDS: PANTOPRAZOLE 40 MG VIAL IV (19:20)
[2022-11-24] MEDS: LACTATED RINGERS 1,000 ML 1000 ML IV ×2 (19:21→20:13)
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
[2022-11-24 19:47] LABS: Bacteria Urine Few (2-10); Culture Indicated Urine Cult Not Indicated; Mucus Urine 1+ (Negative); RBC Urine 1-5/HPF (0-5/HPF); Squamous Epithelial Cell Urine 1-5 /HPF (0-5/HPF); WBC Urine 1-5/HPF (0-5/HPF)
[2022-11-24 21:19] VITALS: BP 122/74; PULSE 99; O2SAT 100
[2022-11-24] MEDS: ONDANSETRON 4 MG ODT PREPACK 1 BOTTLE MISC (21:47)
== END 2022-11-24 21:53 | disposition home or self-care (01) ==
PROVIDERS: Emergency Medicine; Emergency Provider Emergency Medicine
DX: E86.0 Dehydration (principal); R11.2 Nausea with vomiting, unspecified; R19.7 Diarrhea, unspecified; R10.9 Unspecified abdominal pain
CPT/HCPCS: 36415; 70450; 80053; 81003; 81015; 81025; 83690; 85025; 93005; 96361; 96374; 96375; 99284; C9113; J2405

== ENCOUNTER 2023-03-30 19:57 | Emergency (ER) | payer OTHER, SELFPAY ==
[2023-03-30 20:18] VITALS: BP 150/65; PULSE 78; RESP 16; TEMP 36.6; O2SAT 100; BMI 29.1
[2023-03-30 21:25] LABS: Bacteria Urine Few (2-10); RBC Urine 30-100/HPF (0-5/HPF); WBC Urine 10-30/HPF (0-5/HPF)
[2023-03-30 21:26] LABS: Culture Indicated Urine Specimen Cultured; Squamous Epithelial Cell Urine None Seen (0-5/HPF)
[2023-03-30 22:35] VITALS: BP 114/73; PULSE 74; RESP 18; TEMP 37.1; O2SAT 100
[2023-03-30 22:38] VITALS: TEMP 37.1
[2023-03-30 22:45] LABS: Pregnancy Test Urine Negative (Negative)
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
[2023-03-30] MEDS: cephALEXin 250 MG CAPSULE 500 MG PO (23:06)
[2023-03-30] MEDS: PHENAZOPYRIDINE 100 MG TABLET PO (23:06)
[2023-03-30 23:12] VITALS: BP 123/59; PULSE 73; RESP 16; O2SAT 100
== END 2023-03-30 23:13 | disposition home or self-care (01) ==
PROVIDERS: Emergency Provider Emergency Medicine
DX: N39.0 Urinary tract infection, site not specified (principal)
CPT/HCPCS: 81003; 81015; 81025; 87077; 87086; 87186; 99283

== ENCOUNTER → 2023-05-30 09:26 | Outpatient (CLI) | payer OTHER, SELFPAY ==
[2023-05-30 12:22] LABS: Urine N gonorrhoeae NOT DETECTED
[2023-05-30 12:40] LABS: Urine Chlamydia NOT DETECTED
== END ==
PROVIDERS: Visit Provider Student in an Organized Health Care Education/Training Program
DX: Z34.81 Encounter for supervision of other normal pregnancy, first trimester (principal); Z3A.11 11 weeks gestation of pregnancy
CPT/HCPCS: 87491; 87591

== ENCOUNTER → 2023-05-30 09:29 | Outpatient (CLI) | payer OTHER, SELFPAY ==
[2023-05-30 10:17] LABS: Add Manual Diff / Slide Review NO; Basophils Absolute Auto 0 /uL (0-100); Basophils Percent Auto 0.3 % (0-2); Eosinophils Absolute Auto 0 /uL (0-450); Eosinophils Percent Auto 0.2 % (2-4); Hematocrit 37.9 % (36-46); Hemoglobin 13.1 g/dL (12.0-16.0); Lymphocytes Absolute Auto 1900 /uL (1100-4500); Lymphocytes Percent Auto 20.3 % (25-40); Mean Corpuscular HGB Conc 34.6 % (30-36); Mean Corpuscular Hemoglobin 30.3 PG (26-34); Mean Corpuscular Volume 87.4 fL (80-100); Monocytes Absolute Auto 600 /uL (0-900); Monocytes Percent Auto 6.3 % (3-14); Neutrophils Absolute Auto 7000 /uL (1500-7000); Neutrophils Percent Auto 72.9 % (50-75); Platelet Count 242 X10^3/uL (150-400); Red Blood Cell Count 4.34 X10^6/uL (4.0-5.2); Red Cell Distribution Width 12.9 % (11.6-14.8); White Blood Cell Count 9.6 X10^3/uL (4.5-11.0)
[2023-05-30 17:37] LABS: HIV 1 & 2 Ab/Ag 4th Gen Combo NEGATIVE (NEGATIVE); Hep C Virus Ab w/Reflex Quant NEGATIVE s/c (NEGATIVE); Hepatitis B Surface Antigen NEGATIVE s/c (NEGATIVE); Rubella Antibody IgG 18.9 IU/mL (>15)
[2023-05-31 06:42] LABS: RPR Screen Non Reactive (Non Reactive)
[2023-05-31 10:04] LABS: Varicella IgG Antibody 764 index (Immune >165)
== END ==
PROVIDERS: Referring Provider Student in an Organized Health Care Education/Training Program; Visit Provider Student in an Organized Health Care Education/Training Program
DX: Z34.81 Encounter for supervision of other normal pregnancy, first trimester (principal); Z3A.11 11 weeks gestation of pregnancy
CPT/HCPCS: 36415; 80055; 86787; 86803; 86850; 86900; 86901; 87389; 87491; 87591

== ENCOUNTER → 2023-07-24 10:51 | Outpatient (CLI) | payer OTHER, SELFPAY ==
[2023-07-26 22:42] LABS: AFP, Serum 54.8 ng/mL (.); Estriol, Free 3.09 ng/mL (.); Inhibin A, Dimeric 159.04 pg/mL (.); Inhibin A, MoM 1.01 (.); Maternal Ethnicity Caucasian (.); Maternal Weight 164 lbs (.); Number of Fetuses No (.); OSBR Risk 1 IN 8933 (.); Results Report (.); Test Results *Screen Negative* (.); hCG, MoM 1.04 (.); hCG, Serum 25723 mIU/mL (.)
== END ==
PROVIDERS: Referring Provider Student in an Organized Health Care Education/Training Program; Visit Provider Student in an Organized Health Care Education/Training Program
DX: Z34.82 Encounter for supervision of other normal pregnancy, second trimester (principal); Z3A.15 15 weeks gestation of pregnancy
CPT/HCPCS: 36415; 82105; 82677; 84702; 86336

== ENCOUNTER → 2023-07-31 13:54 | Outpatient (CLI) | payer OTHER, SELFPAY ==
--- NOTE | 2023-07-31 13:55 | DI.US.S_ITS ---
PROCEDURE: US OB >= 14 WEEKS FETUS INDICATIONS: 20 week anatomy scan OUTSIDE/PRIOR DATING DATA: Last menstrual period (LMP): Unsure LMP-based estimated date of delivery (DIANA): 12/15/2023 First dating scan (date and location): Not applicable Estimated date of delivery (DIANA) from first dating scan: Not applicable TECHNIQUE: Real-time scanning was performed of the fetus, with image documentation and biometric measurements. Endovaginal scanning: Not dictated COMPARISON: [facility], , OB <= 14 WEEKS FETUS, 05/30/2023, 9:18. FINDINGS: General: A single living intrauterine gestation is present. Presentation: Cephalic. Placenta: Placental position is posterior, without previa. Amniotic fluid index: 9.5 cm, normal range is 5-24 cm. Single deepest vertical pocket is 5.2 cm. heart rate: 135 beats per minute. Maternal cervical canal: 3.1 cm long. Normal lower limit is 2.5 cm. biometrics: Biparietal diameter: 4.9 cm, 20 weeks, 5 days. Head circumference: 17.3 cm, 19 weeks, 6 days. Abdominal circumference: 14.5 cm, 19 weeks, 5 days. Femur length: 3.2 cm, 20 weeks, 0 day. Clinically estimated gestational age: 20 weeks, 3 days Composite gestational age from present scan: 20 weeks, 1 day Estimated weight and percentile: 321 grams, 20 percent. Anatomic survey: Neuro: Ventricles are non-dilated at less than 10 mm. Cisterna magna is normal at 3-11 mm. Cerebellum is normal in size and morphology. Nuchal skin fold: Normal at less than 6 mm between 14-21 weeks gestational age. Face: Nose and lips, facial profile are normal. Spine: No evidence for spina bifida. Heart: 4-chambered heart is present, with normal ventricular outflow tracts. Diaphragm: Diaphragm is intact. Stomach: Left-sided stomach is present. Kidneys: No hydronephrosis. Normal is less than 5 mm in 2nd trimester, less than 7 mm in 3rd trimester. Cord: 3-vessel cord has orthotopic insertion. Bladder: Normal in size. Extremities: All 4 extremities identified. IMPRESSION: 1. Single live intrauterine gestation with fetus in vertex presentation. heart rate is 135 beats per minute. Normal amount of amniotic fluid. Normal growth. Estimated weight is at 20 percent. 2. Normal anatomic survey. We strive to produce accurate, complete, and clear reports of imaging services. To assist us in improving patient care, this report was composed using standard report templates and voice recognition software. Therefore, it may contain abnormal punctuation, insertions and/or omissions. Occasional wrong-word or sound-alike substitutions may occur. Though we review the report and make efforts to correct it, we do recommend that the report be read carefully in proper context to recognize any text inaccuracies. Dictated by: Raúl Lin M.D. on 07/31/2023 at 20:58 Approved by: Raúl Lin M.D. on 07/31/2023 at 21:01
== END ==
PROVIDERS: Referring Provider Student in an Organized Health Care Education/Training Program; Visit Provider Student in an Organized Health Care Education/Training Program
DX: Z34.82 Encounter for supervision of other normal pregnancy, second trimester (principal); Z3A.20 20 weeks gestation of pregnancy
CPT/HCPCS: 76811

== ENCOUNTER → 2023-09-18 09:10 | Outpatient (CLI) | payer OTHER, SELFPAY ==
[2023-09-18 11:25] LABS: Hematocrit 33.5 % (36-46); Hemoglobin 11.7 g/dL (12.0-16.0)
[2023-09-18 11:43] LABS: GTT (PREG) 1 Hour PP 50gm Dose 125 mg/dL (76-139)
== END ==
LOC: LAB 09:11
PROVIDERS: Referring Provider Student in an Organized Health Care Education/Training Program; Visit Provider Student in an Organized Health Care Education/Training Program
DX: Z34.82 Encounter for supervision of other normal pregnancy, second trimester (principal); Z3A.26 26 weeks gestation of pregnancy
CPT/HCPCS: 82950; 85014; 85018

== ENCOUNTER 2023-10-10 17:01 | Observation (INO) | payer OTHER, SELFPAY ==
[2023-10-10 18:07] LABS: COVID19 -Nasal RAPID Negative (Negative)
[2023-10-10 18:22] LABS: Add Manual Diff / Slide Review NO; Basophils Absolute Auto 0 /uL (0-100); Basophils Percent Auto 0.2 % (0-2); Eosinophils Absolute Auto 0 /uL (0-450); Hematocrit 32.7 % (36-46); Hemoglobin 11.4 g/dL (12.0-16.0); Lymphocytes Absolute Auto 1000 /uL (1100-4500); Lymphocytes Percent Auto 8.1 % (25-40); Mean Corpuscular HGB Conc 34.7 % (30-36); Mean Corpuscular Hemoglobin 31.5 PG (26-34); Mean Corpuscular Volume 90.9 fL (80-100); Monocytes Absolute Auto 800 /uL (0-900); Monocytes Percent Auto 6.9 % (3-14); Neutrophils Absolute Auto 10000 /uL (1500-7000); Neutrophils Percent Auto 84.8 % (50-75); Platelet Count 198 X10^3/uL (150-400); Red Cell Distribution Width 13.3 % (11.6-14.8); White Blood Cell Count 11.8 X10^3/uL (4.5-11.0)
[2023-10-10 18:37] LABS: Alanine Aminotransferase 10 IU/L (<35); Albumin 3.6 g/dL (3.5-5.0); Albumin Globulin Ratio 1.2 (1.0-2.8); Alkaline Phosphatase 101 U/L (38-126); Aspartate Aminotransferase 26 IU/L (14-36); BUN Creatinine Ratio 6.4 (6-22); Bilirubin Total 0.4 mg/dL (0.2-1.3); Blood Urea Nitrogen 3 mg/dL (7-17); Calcium 8.7 mg/dL (8.4-10.2); Carbon Dioxide 22 mmol/L (22-32); Chloride 103 mmol/L (98-107); Estimated Glomerular Filt Rate > 60 mL/min (>60); Glucose 81 mg/dL (70-100); HEMOLYSIS < 15 (0-50); Potassium 3.6 mmol/L (3.4-5.1); Sodium 134 mmol/L (137-145); Total Protein 6.6 g/dL (6.3-8.2)
[2023-10-10 19:06] LABS: Appearance Urine UA CLEAR; Bilirubin Urine UA NEGATIVE (NEGATIVE); Color Urine UA YELLOW; Glucose Urine UA NEGATIVE (Negative); Ketones Urine UA 1+ (NEGATIVE); Leukocyte Esterase Urine UA 1+ (NEGATIVE); Nitrite Urine UA NEGATIVE (Negative); Occult Blood Urine UA TRACE-INTACT (Negative); Protein Urine UA NEGATIVE (Negative); Urobilinogen Urine UA 0.2 E.U./dL (0.2)
[2023-10-10 19:13] LABS: Adenovirus Not Detected (Not Detect); B. parapertussis Not Detected (Not Detecte); Bordetella pertussis Not Detected (Not Detect); Chlamydophila pneumoniae Not Detected (Not Detect); Coronavirus 229E Not Detected (Not Detect); Coronavirus HKU1 Not Detected (Not Detect); Coronavirus NL 63 Not Detected (Not Detect); Coronavirus OC43 Not Detected (Not Detect); Human Metapneumovirus Not Detected (Not Detect); Human Rhinovirus/Enterovirus Not Detected (Not Detect); Influenza A H1-2009 Detected (Not Detect); Influenza B Not Detected (Not Detect); Mycoplasma pneumoniae Not Detected (Not Detect); Parainfluenza Virus 1 Not Detected (Not Detect); Parainfluenza Virus 2 Not Detected (Not Detect); Parainfluenza Virus 3 Not Detected (Not Detect); Parainfluenza Virus 4 Not Detected (Not Detect); Respiratory Syncytial Virus Not Detected (Not Detect); SARS- CoV-2 Not Detected (Not Detecte)
[2023-10-10 19:17] LABS: Urine Volume 10mL (spun)
[2023-10-10 19:18] LABS: Amorphous Sediment Urine 1+; Bacteria Urine Occasional (0-1); Culture Indicated Urine Specimen Cultured; RBC Urine 1-5/HPF (0-5/HPF); Squamous Epithelial Cell Urine 1-5 /HPF (0-5/HPF); WBC Urine 5-10/HPF (0-5/HPF)
[2023-10-10 19:23] LABS: Uric Acid 2.3 mg/dL (2.5-6.2)
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
== END 2023-10-10 20:05 | disposition home or self-care (01) ==
PROVIDERS: Admitting Provider Obstetrics & Gynecology; Referring Provider Obstetrics & Gynecology; Visit Provider Obstetrics & Gynecology
DX: O23.43 Unspecified infection of urinary tract in pregnancy, third trimester (principal); N39.0 Urinary tract infection, site not specified; O26.893 Other specified pregnancy related conditions, third trimester; J10.1 Influenza due to other identified influenza virus with other respiratory manifestations; Z3A.30 30 weeks gestation of pregnancy; Z11.52 Encounter for screening for COVID-19
CPT/HCPCS: 36415; 59025; 59050; 80053; 81001; 84550; 85025; 87086; 87633; 87635; 96360; G0378; G0379

== ENCOUNTER 2023-10-15 19:31 | Emergency (ER) | payer OTHER, SELFPAY ==
[2023-10-15 19:43] VITALS: BP 137/70; PULSE 85; RESP 18; TEMP 37.1; O2SAT 97; BMI 28.6
--- NOTE | 2023-10-15 21:17 | ED.RECABL ---
HPI - Recheck/Abnormal Lab/Rx General Chief Complaint: Recheck/Abnormal Lab/Rx Stated Complaint: post flu/31 wks /worsening Time Seen by Provider: 10/15/23 21:12 Source: patient Mode of arrival: Ambulatory History of Present Illness HPI narrative: Patient is a 28-year-old female. She was 31 weeks . Approximately 7 days ago started have symptoms that subsequently was diagnosed as influenza. Is on Tamiflu. Is also on Macrobid for urinary tract infection. She did have some cramping earlier in the week but nothing currently. No vaginal bleeding. No discharge. She is here because she states her symptoms to include shortness of breath and coughing and fevers are not getting better. She was advised to come to the emergency department for further evaluation. Related Data Allergies Allergy/AdvReac Type Severity Reaction Status Date / Time No Known Drug Allergies Allergy Verified 10/15/23 19:43 Review of Systems Constitutional Constitutional: Reports system reviewed and no additional complaints, except as documented Cardiovascular Cardiovascular: Reports system reviewed and no additional complaints, except as documented Respiratory Respiratory: Reports system reviewed and no additional complaints, except as documented Gastrointestinal Gastrointestinal: Reports system reviewed and no additional complaints, except as documented Genitourinary Genitourinary: Reports system reviewed and no additional complaints, except as documented Integumentary/Breasts Skin/Breast: Reports system reviewed and no additional complaints, except as documented Neurologic Neurologic: Reports system reviewed and no additional complaints, except as documented Patient History Social History Smoking Status: Never smoker Smoking Status: Never smoker Substance Use Type: does not use Exam Initial Vital Signs Initial Vital Signs: Vital Signs Temperature 98.8 F 10/15/23 19:43 Pulse Rate 85 10/15/23 19:43 Respiratory Rate 18 10/15/23 19:43 Blood Pressure 137/70 10/15/23 19:43 Pulse Oximetry 97 10/15/23 19:43 Oxygen Delivery Method Room Air 10/15/23 19:43 Const General: cooperative, comfortable and No ill appearing [facility] Head: normal to inspection and normocephalic Resp Effort & Inspection: normal respiratory effort Auscultation: clear to auscultation bilaterally Cardio Rate: regular rate Rhythm: regular rhythm GI Other: Gravid abdomen Skin General: no rashes or lesions noted Neuro General: patient alert, patient awake and moves all extremities Extrem General: capillary refill normal Course Vital Signs Vital signs: Vital Signs - 8 hr 10/15/23 19:43 10/15/23 21:29 Temperature 98.8 F 98.1 F Pulse Rate 85 90 Respiratory Rate 18 18 Blood Pressure 137/70 114/77 Pulse Oximetry 97 98 Oxygen Delivery Method Room Air Room Air MDM - Recheck/Abnormal Lab/Rx Medical Records Attestation: I reviewed the patient's medical records. [facility] Narrative Medical decision making narrative: Patient is not hypoxic. Not tachypneic. He has not having any gynaecological oncologist related complaints. Not hypertensive. No fevers. I am not surprised that her symptoms are not better she has only had flu-like symptoms for the past 7 days. No indication for labs. Will hold on any radiologic studies for now given her status. No indication for admission to the hospital. No indication to change any of the medications she is taking. Provided reassurance to the patient. He was given return precautions. She expressed understanding and agreement. She is tolerating oral intake. Discharge Plan Departure Patient Disposition: Home Clinical Impression: Influenza Instructions: Influenza Activity Restrictions/Additional Instructions: I do recommend that you keep all of your scheduled medical appointments. Be sure that you were increasing your fluid intake. You can take Tylenol. Sudafed is acceptable in the 2nd and 3rd trimester as long as you do not have baseline issues with high blood pressure. Your blood pressure in the emergency department today are normal. I would advise that you contact your OB department for further treatment if needed. Stand Alone Forms: Patient Portal/API
[2023-10-15 21:29] VITALS: BP 114/77; PULSE 90; RESP 18; TEMP 36.7; O2SAT 98
== END 2023-10-15 21:42 | disposition home or self-care (01) ==
PROVIDERS: Emergency Provider Emergency Medicine
DX: J10.1 Influenza due to other identified influenza virus with other respiratory manifestations (principal); Z3A.31 31 weeks gestation of pregnancy
CPT/HCPCS: 99281; 99283

== ENCOUNTER → 2023-11-16 14:29 | Outpatient (CLI) | payer OTHER, SELFPAY ==
[2023-11-17 14:55] LABS: Strep Grp B PCR NEG for Grp B Strep
== END ==
PROVIDERS: Visit Provider Student in an Organized Health Care Education/Training Program
DX: Z34.03 Encounter for supervision of normal first pregnancy, third trimester (principal); Z3A.35 35 weeks gestation of pregnancy
CPT/HCPCS: 87653

== ENCOUNTER 2023-12-05 20:11 | Outpatient (CLI) | payer OTHER, SELFPAY | END 2023-12-05 21:22 | disposition home or self-care (01) | LOC: LABOR 20:25 → OB 12-06 09:36 | PROVIDERS: PCP Family Medicine; Referring Provider Family Medicine; Visit Provider Family Medicine | DX: Z36.9 Encounter for antenatal screening, unspecified (principal) | CPT/HCPCS: 59025; G0378; G0379 ==

== ENCOUNTER 2023-12-07 10:27 | Outpatient (CLI) | payer OTHER, SELFPAY ==
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
== END 2023-12-07 11:05 | disposition home or self-care (01) ==
LOC: LABOR 11:13 → OB 12-10 06:08
PROVIDERS: PCP Family Medicine; Referring Provider Student in an Organized Health Care Education/Training Program; Visit Provider Student in an Organized Health Care Education/Training Program
DX: Z03.71 Encounter for suspected problem with amniotic cavity and membrane ruled out (principal)
CPT/HCPCS: 59025; 84112; G0378; G0379

== ENCOUNTER 2023-12-10 19:28 | Inpatient (IN) | payer OTHER, SELFPAY ==
[2023-12-10 19:35] VITALS: BP 106/62
[2023-12-10 20:23] LABS: Add Manual Diff / Slide Review NO; Basophils Absolute Auto 100 /uL (0-100); Basophils Percent Auto 0.7 % (0-2); Eosinophils Absolute Auto 100 /uL (0-450); Eosinophils Percent Auto 0.5 % (2-4); Hematocrit 34.3 % (36-46); Hemoglobin 11.7 g/dL (12.0-16.0); Lymphocytes Absolute Auto 3000 /uL (1100-4500); Lymphocytes Percent Auto 22.1 % (25-40); Mean Corpuscular HGB Conc 34.1 % (30-36); Mean Corpuscular Hemoglobin 30.9 PG (26-34); Mean Corpuscular Volume 90.4 fL (80-100); Monocytes Absolute Auto 900 /uL (0-900); Monocytes Percent Auto 6.7 % (3-14); Neutrophils Absolute Auto 9500 /uL (1500-7000); Platelet Count 297 X10^3/uL (150-400); Red Blood Cell Count 3.79 X10^6/uL (4.0-5.2); Red Cell Distribution Width 13.9 % (11.6-14.8); White Blood Cell Count 13.6 X10^3/uL (4.5-11.0)
[2023-12-10] MEDS: DINOPROSTONE VAG (CERVIDIL) 10 MG VAG (21:11)
--- NOTE | 2023-12-11 05:15 | PM.AN.REGBLK ---
[facility] <Inez Rodriguez, DO - Last Filed: 12/11/23 05:24> Pre-procedure Procedure: Continuous Lumbar Epidural for L&D Attending OB provider: Chaparrita Enciso PMH/ROS narrative: 28yo at 39w3d in labor requesting epidural. See pre-anesthesia evaluation for further details, including hx of unexplained syncope, with increased episodes during . ASA Class: III Labs: Hct 34.3 % (36-46) L 12/10/23 20:10 Plt Count 297 X10^3/uL (150-400) 12/10/23 20:10 Medications: Current Medications Generic Name Dose Route Start Last Admin Trade Name Freq PRN Reason Stop Dose Admin Carboprost Tromethamine 250 mcg 12/10/23 19:36 Carboprost 250 Mcg/Ml Ampul IM Q90M PRN Bleeding Oxytocin/Lactated Ringer's 30 unit in 500 mls @ 200 mls/hr 12/10/23 19:36 Oxytocin Premix IV CONT PRN Bleeding Protocol Lactated Ringer's 1,000 mls @ 100 mls/hr 12/10/23 19:45 Lactated Ringers IV CONT RASHAWN Tranexamic Acid 1,000 mg/ 100 mls @ 200 mls/hr 12/10/23 19:36 Sodium Chloride IV NOW PRN Bleeding Lidocaine HCl 20 ml 12/10/23 19:36 Lidocaine 1% 20 Ml INJ INTRA-OP PRN Post Delivery Methylergonovine Maleate 0.2 mg 12/10/23 19:36 Methylergonovine 0.2 Mg/Ml Vial IM NOW PRN Bleeding Methylergonovine Maleate 0.2 mg 12/10/23 19:36 Methylergonovine 0.2 Mg Tablet PO Q6HR PRN Heavy Bleeding Misoprostol 800 mcg 12/10/23 19:36 Misoprostol 200 Mcg Tablet DC NOW PRN Bleeding Misoprostol 400 mcg 12/10/23 19:36 Misoprostol 200 Mcg Tablet SL NOW PRN Bleeding Naloxone HCl 0.2 mg 12/10/23 19:36 Naloxone 0.4 Mg/Ml Vial IV Q2MIN PRN Opiate Reversal Ondansetron HCl 4 mg 12/10/23 19:36 Ondansetron 4 Mg/2 Ml Inj IV Q4HR PRN Nausea And Vomiting Oxytocin 10 unit 12/10/23 19:36 Oxytocin 10 Unit/Ml Vial IM NOW PRN Bleeding Allergies: Allergies Allergy/AdvReac Type Severity Reaction Status Date / Time No Known Drug Allergies Allergy Verified 12/07/23 09:58 Procedure Insertion date: 12/11/23 Insertion time: 04:51 Prep/Local: 1% lidocaine (Chloraprep) Interspace: L4-5 Patient position: sitting Needle: 18 gauge Petrona Loss of resistance with: saline KEYON at (cm): 6 Catheter placed at SKIN (cm): 13 Catheter in SPACE (cm): 7 Insertion: No CSF, No Blood, No Paresthesia with insertion, No Paresthesia with injection and No Test dose reaction Initial Medications TEST DOSE time: 04:53 TEST DOSE: 1.5% lidocaine with epinephrine 1:200k (mL): 3 BOLUS DOSE time: :54 BOLUS DOSE (mL): 2 BOLUS DOSE med: other (same) Infusion INFUSION: 0.125% bupivacaine and with fentanyl 2 mcg/mL Initial rate (mL/hr): 10 Subsequent interventions: On arrival, pt appeared comfortable during contractions and last dilation check was at 1 cm, so did not do CSE; pt was admitted last night for cervical ripening but is now in labor. Epidural placement required two attempts, one at L3-4 and second at L4-5. Placement was complicated by one of pt's near-syncope events. Pt felt light-headed and had the warning signs of her syncopal events but was able to breathe through it. Epidural needle was removed, and we waited it out. After about 15 minutes, pt felt able to continue with placement, and remainder of placement was uneventful. Loading dose of 5 ml given through epidural pump, and infusion started at 05:09. KR Post-procedure Anesthesia date START: 12/11/23 Anesthesia time START: 04:20 <[place] Aranda, DO - Last Filed: 12/11/23 13:26> Post-procedure Anesthesia date END: 12/11/23 Anesthesia time END: 13:13 Post-procedure Anesthesia Assessment: Yes CV function: HR/BP stable, Yes Resp function: RR/sat/airway adequate, Yes Post-op hydration adequate, Yes Pain control adequate, Yes Nausea & vomiting absent, Yes Temperature > 36 C, Yes Mental status appropriate and No Anesthesia complications
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
[2023-12-11 08:10] VITALS: BP 111/69; PULSE 89; TEMP 36.6
[2023-12-11] MEDS: FENT 2MCG/ML BUPIV 0.125% EPI 200 MCG/100 ML PLAST..BAG 6 MCG EPIDURAL (10:34)
[2023-12-11] MEDS: LACTATED RINGERS 1,000 ML 100 ML IV (10:34)
--- NOTE | 2023-12-11 11:27 | PM.OBPNLAB ---
Date/Time Date Patient Seen: 12/11/23 Time Patient Seen: 11:27 Pain Control Pain control: epidural Pelvic Exam Dilation (cm): 9 Effacement (%): 90 station: 0 Amniotic membrane status: Leaking (? SROM) Contractions Contraction pattern: Irregular Contraction intensity: Moderate Status status: Category ll Heart Rate Baseline: 150 Monitor Accelerations: Present Monitor Decelerations: Late and Variable Monitor Variability: Moderate Assessment and Plan Assessment: active labor Plan: continuous present management Comments: 28yo at 39+3wks undergo induction of labor. She has progressed into active labor, with questionable ruptured membranes on exam. Overall the heart rate tracing is reassuring with moderate variability and accels, however is category 2 given episodic late and variable decels. -anticipate
[2023-12-11] MEDS: TRANEXAMIC ACID 1,000 MG in SODIUM CHLORIDE 0.9% 100 ML 200 MG IV (13:18)
[2023-12-11] MEDS: METHYLERGONOVINE 0.2 MG/ML VIAL IM (13:18)
--- NOTE | 2023-12-11 13:44 | PM.OBPRVD ---
Events: Labor Induction Labor & Delivery Delivery date: 12/11/23 Intrapartal Events: None Cervical ripening method: per Cervidil protocol Delivery monitor: external FHT Route of delivery: L&D Laceration Description: Perineal - 2nd Degree Delivery repair: vicryl Quantitative Blood Loss: 451 Anesthesia Type: Epidural Narrative: The patient progressed to C/C/+2 with epidural anesthesia. After approximately 1hr of maternal pushing efforts, the infant delivered in OA position and restituted ROT. The anterior shoulder delivered with gentle downward pressure. The posterior shoulder and rest of body delivered with ease. The cord was doubly clamped and cut after a 60sec delay with the infant placed on maternal abdomen. The placenta delivered spontaneously and was intact with a 3-vessel cord. The fundus was noted to be firm with bimanual massage, pitocin, 1g TXA, and one dose of 0.2mg methergine IM. Inspection of the cervix, vagina, and perineum was notable for a 2nd degree perineal laceration. Repair was performed using 3-0 Vicryl in a running, unlocked fashion. Skin was reapproximated in a running, subcuticular fashion. At the end of the repair, all tissues noted to be hemostatic. All sponges were removed from the vagina. The patient tolerated delivery well and remained in the labor room with the infant at the bedside. Baby 1: Infant gender: Male Presentation: vertex Cord Vessel Description: 3 Vessels and Nuchal Cord score (1 min): 8 score (5 min): 9 weight: 6 lb 11.903 oz Plan for aftercare: Routine care
[2023-12-11] MEDS: ONDANSETRON 4 MG/2 ML INJ IV (13:46)
[2023-12-11] MEDS: ACETAMINOPHEN 325 MG TABLET 650 MG PO ×2 (17:30→23:42)
[2023-12-11] MEDS: IBUPROFEN 600 MG TABLET PO ×2 (17:31→23:42)
[2023-12-12] MEDS: IBUPROFEN 600 MG TABLET PO ×2 (05:21→12:19)
[2023-12-12] MEDS: ACETAMINOPHEN 325 MG TABLET 650 MG PO ×2 (05:22→12:19)
--- NOTE | 2023-12-12 12:32 | P.DS_ITS ---
Discharge Providers Provider Date of admission: 12/10/23 19:28 Discharge Date: 12/12/23 Primary care physician: Ford Ibarra MD Consults: 12/10/23 19:36 Consult to Anesthesiology Urgent Comment: Consulting Provider: Anesthesiologist Reason for consultation: Epidural 12/12/23 13:42 Consult to Sanitation Associate Routine Comment: Discharge provider: Chandana Au MD Summary Hospital Course Date Patient Seen: 12/12/23 Time Patient Seen: 12:33 Diagnoses: Intrauterine gestation, 39+ 3 weeks, delivered by spontaneous vaginal GBS negative status Hospital Course: Jill was admitted on the evening of 12/10/2023 for cervical ripening. Pitocin was initiated on the morning of 12/11/2023 and she delivered later that day a viable male with Apgars of 8/9 and a weight of 6 lb 11.9 oz. She sustained a second-degree perineal laceration at the time of delivery which was repaired in the usual manner. Following delivery the patient has done extremely well with prompt return of bowel and bladder function, she is ambulating independently, tolerating regular diet, and her pain is well relieved with oral pain medications. She will be discharged at this time in an afebrile normotensive condition to home with medications to include resumption of all pre delivery medications as well as ibuprofen 600 mg p.o. q.6 hours as needed pain, dispense 30 with 2 refills. Peripartum Data Delivery Method: Natural Vaginal Laceration Description: Perineal - 2nd Degree Episiotomy description: None Procedures: Spontaneous vaginal with repair of second-degree perineal laceration complications: none [place] 1: Gender: Male Disposition of : home Status at Discharge Cognitive/behavioral status at discharge: oriented Functional status at discharge: independent ambulation Overall status at discharge: patient is progressing back to baseline Time Spent with Patient Time attestation: Total time spent providing and/or coordinating discharge services: Time spent: Less than 30 minutes Objective Labs 12/10/23 20:10 Exam Const General: cooperative and comfortable Nutritional Appearance: average body habitus Orientation: alert and oriented x3 HENMT Head: normal to inspection, atraumatic and abrasion Ears: hearing grossly normal bilaterally Face and sinus: face symmetric Eyes General: appearance normal, both eyes and all related structures Conjunctivae: conjunctivae normal Sclera: sclerae normal EOM: EOM intact bilaterally Neck Neck: normal visual inspection Resp Effort & Inspection: normal respiratory effort and able to speak in complete sentences GI Inspection: normal to inspection External Female Exam: other (No significant bleeding noted) Extrem General: no calf tenderness Psych Appearance: grossly normal Mental Status: mental status grossly normal Speech and Movement: speech and movement normal Mood: congruent mood Affect: normal affect Attitude: cooperative Thought Process: normal Thought Content: normal Judgment: judgment good Discharge Plan Discharge Plan Patient Disposition: Home Provider Discharge Comment: Please review the written instructions you received when you were discharged from the hospital. Your follow-up appointment will be scheduled for 2 weeks after delivery and we look forward to seeing you then. If however in the meanwhile you have any issues, concerns, or questions, please contact the office either by phone at [phone], or via the patient portal. Discharge orders & Medications Prescriptions: New ibuprofen 600 mg Tablet 600 mg PO Q6HR PRN (Reason: Pain, Mild (1-3)) Qty: 30 2RF Continued diphenhydramine HCl [Benadryl Allergy] 25 mg tablet 12.5 mg PO BEDTIME PRN ondansetron 4 mg tablet,disintegrating 4 mg PO TID-QID PRN (Reason: nausea and vomiting early .) Qty: 20 2RF [id number] oil 400 mcg-35 mg -25 mg-5 mg tablet,chewable PO Ferretts Carbonyl Iron 18 mg iron tablet,chewable 18 mg PO DAILY pyridoxine (vitamin B6) 100 mg tablet 50 mg PO BID Follow up/Referrals: Ford Ibarra MD [Primary Care Provider] - Chaparrita Enciso DO [Physician] - 2 Weeks (Please follow up with Dr. Enciso for a 2 week telehealth on SundayDecember 24, expect a call around 4:45pm ([facility]). Your 6-week follow up is scheduled for January 21 @ 1130am. Please call the clinic with any questions ) Discharge Health Status Multidrug resistant organism: No MDRO Diet/Activity/Treatments Diet: Diet as Tolerated Activity: As tolerated Other treatments: Ysgo-jaw-tokrete Tylenol and/or ibuprofen may be used for pain relief. Bjrc-jzr-vyvgnbi stool softeners and/or MiraLax may be used as needed for constipation. Skin/Wound/Dressing Care Report to your healthcare provider any signs of infection, such as:: chills, fever, increased pain, unusual drainage and unusual redness Dressing: N/A Visit Report/Discharge Packet Instructions: DI for Labor and Delivery, Vaginal , DI for and Nipple Soreness Stand Alone Forms: Discharge: Care Discharge Data Primary Care Provider: Ford Ibarra
[2023-12-12 13:00] VITALS: BP 90/58; PULSE 74; RESP 15; TEMP 36.8
== END 2023-12-12 13:55 | disposition home or self-care (01) | DRG 807 ==
PROVIDERS: Admitting Provider Student in an Organized Health Care Education/Training Program; PCP Family Medicine; Referring Provider Student in an Organized Health Care Education/Training Program; Visit Provider Student in an Organized Health Care Education/Training Program
DX: O70.1 Second degree perineal laceration during delivery (principal); Z37.0 Single live birth; Z3A.39 39 weeks gestation of pregnancy
CPT/HCPCS: 36415; 59050; 59200; 85025; 86850; 86900; 86901; G0379; J2210; J2405

== ENCOUNTER → 2025-03-14 11:07 | Outpatient (CLI) | payer OTHER, SELFPAY ==
--- NOTE | 2025-03-14 11:09 | DI.MRI.S_ITS ---
PROCEDURE: MR HEAD/BRAIN WO/W CON INDICATIONS: VISUAL DISTURBANCE TECHNIQUE: Noncontrast axial T1 spin echo, axial T2 fast spin echo, sagittal and axial FLAIR, coronal T2 fast spin echo, axial gradient echo, axial diffusion and ADC through the brain. After the administration of contrast, axial and coronal and sagittal 3D VIBE or T1 spin echo with fat saturation through the brain. COMPARISON: CT, CT HEAD/BRAIN WO CON, 11/24/2022, 20:36. FINDINGS: Image quality: Excellent. CSF Spaces: Basal cisterns are patent. No extra-axial fluid collections. Ventricles are normal in size and shape. Brain: No midline shift. No intracranial bleeds or masses. No abnormal intracranial enhancement. The brainstem appears normal. Diffusion-weighted images demonstrate no acute infarct. No chronic ischemic insults. Normal intravascular flow voids are present. Skull and face: Calvarial marrow is normal in signal. Orbits appear normal. Sinuses: Sinuses and mastoids appear clear. IMPRESSION: 1. No acute intracranial process. Dictated by: Isela Burnham M.D. on 03/14/2025 at 18:11 Approved by: Isela Burnham M.D. on 03/14/2025 at 18:12
== END ==
PROVIDERS: PCP Family Medicine; Referring Provider Family Medicine; Visit Provider Family Medicine
DX: H53.469 Homonymous bilateral field defects, unspecified side (principal); H53.40 Unspecified visual field defects; H54.7 Unspecified visual loss
CPT/HCPCS: 70553; A9579

== ENCOUNTER 2025-03-14 16:47 | Emergency (ER) | payer OTHER, SELFPAY ==
[2025-03-14] VITALS (15 sets, daily range): BP systolic 120–138; BP diastolic 68–79; PULSE 77–94; RESP 11–17; TEMP 36.6; O2SAT 97–100; BMI 24.1
--- NOTE | 2025-03-14 17:21 | EKG_ITS ---
[address] [address] Test Date: 2025-03-14 Pat Name: Jill Kamara Department: [facility] Room: Gender: Female Draughtsman: KARLA : 1995 Requested By: Order Number: [id number] Reading MD: Ron Arroyo Measurements Intervals [place] Rate: 78 P: 36 [place]: 156 QRS: 17 QRSD: 88 T: 29 QT: 388 QTc: 442 Interpretive Statements Normal sinus rhythm Electronically Signed On 03-27-2025 8:13:49 PDT by Ron Arroyo
[2025-03-14 17:59] LABS: Add Manual Diff / Slide Review NO; Hematocrit 42.6 % (36-46); Hemoglobin 14.8 g/dL (12.0-16.0); Lymphocytes Absolute Auto 1500 /uL (1100-4500); Mean Corpuscular HGB Conc 34.8 % (30-36); Mean Corpuscular Hemoglobin 30.7 PG (26-34); Mean Corpuscular Volume 88.2 fL (80-100); Platelet Count 220 X10^3/uL (150-400)
[2025-03-14 18:00] LABS: Alanine Aminotransferase 34 IU/L (<35); Albumin 5.0 g/dL (3.5-5.0); Albumin Globulin Ratio 1.6 (1.0-2.8); Alkaline Phosphatase 72 U/L (38-126); Blood Urea Nitrogen 4 mg/dL (7-17); Calcium 9.7 mg/dL (8.4-10.2); Carbon Dioxide 23 mmol/L (22-32); Chloride 102 mmol/L (98-107); Estimated Glomerular Filt Rate > 60 mL/min (>60); Globulin 3.2 g/dL (1.7-4.1); Glucose 80 mg/dL (70-99); HEMOLYSIS < 15 (0-50); Potassium 3.0 mmol/L (3.4-5.1); Sodium 137 mmol/L (137-145); Total Protein 8.2 g/dL (6.3-8.2)
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
[2025-03-14 18:37] LABS: Ethanol (ETOH) < 10 mg/dL (<10)
[2025-03-14 18:46] LABS: Troponin I < 0.012 ng/mL (0.01-0.034)
[2025-03-14 18:50] LABS: Lactate (Lactic Acid) 0.7 mmol/L (0.7-2.1)
[2025-03-14 18:51] LABS: HCG Quantitative /Beta subunit < 2.39 mIU/mL
[2025-03-14 20:27] LABS: Appearance Urine UA CLEAR; Bilirubin Urine UA 1+ (NEGATIVE); Color Urine UA YELLOW; Glucose Urine UA NEGATIVE (Negative); Ketones Urine UA 3+ (NEGATIVE); Leukocyte Esterase Urine UA NEGATIVE (NEGATIVE); Nitrite Urine UA NEGATIVE (Negative); Occult Blood Urine UA TRACE-INTACT (Negative); Protein Urine UA NEGATIVE (Negative); Specific Gravity Urine UA 1.020 (1.000-1.035); Urobilinogen Urine UA 0.2 E.U./dL (0.2)
[2025-03-14 20:28] LABS: pH Urine UA 6.0 (4.5-8.0)
--- NOTE | 2025-03-14 20:36 | PC.NURSE ---
Pt up to BR with SBA. Steady gait noted. Denies pain. Orthostatic VS WNL
[2025-03-14 20:43] LABS: Ictotest Urine Negative (Negative); Ur Creatinine Normal (Normal); Ur Specific Gravity Normal (Normal); Urine MDMA Negative (Negative); Urine Methamphetamines Negative (Negative); Urine THC Negative (Negative); Urine Tricyclic Antidepressant Negative (Negative); Urine pH Normal (Normal)
[2025-03-14 20:43] LABS: Troponin I < 0.012 ng/mL (0.01-0.034)
[2025-03-14 20:46] LABS: Culture Indicated Urine Cult Not Indicated
[2025-03-14] MEDS: POTASSIUM CHLORIDE 20 MEQ/15 ML UDC 40 MEQ PO (20:47)
== END 2025-03-14 21:05 | disposition home or self-care (01) ==
PROVIDERS: Emergency Medicine; Emergency Provider Emergency Medicine; PCP Family Medicine
DX: R55 Syncope and collapse (principal); H53.8 Other visual disturbances; E87.6 Hypokalemia; H53.469 Homonymous bilateral field defects, unspecified side; H53.40 Unspecified visual field defects; H54.7 Unspecified visual loss
CPT/HCPCS: 36415; 70553; 80053; 80305; 80320; 81001; 83605; 84484; 84702; 85025; 85379; 93005; 99283; 99284; A9579